=== PATIENT | male | born 1970 | race Caucasian/White ===

== ENCOUNTER 2017-09-07 11:22 | Emergency (ER) | payer BC ==
[~2017-09-07] VITALS: Ht 165.1 cm; Wt 100.7 kg
[2017-09-07 11:27] VITALS: BP 123/88
[2017-09-07] MEDS ORDERED: predniSONE 20 MG TABLET PO ONE (12:00)
[2017-09-07] MEDS ORDERED: predniSONE 20 MG TABLET ONE (12:03)
== END 2017-09-07 12:12 | disposition home or self-care (01) ==
LOC: ER 11:26
DX: G51.0 Bell's palsy (principal); F17.200 Nicotine dependence, unspecified, uncomplicated
CPT/HCPCS: 99283; A4606; J7512; Z7610